=== PATIENT | male | born 1985 | race Caucasian/White ===

== ENCOUNTER 2017-04-17 22:30 | Emergency (ER) | payer OTHER ==
[2017-04-18 00:23] LABS: ADD MAN DIFF? NO
[2017-04-18 00:25] LABS: BASO % 1 % (0-3); EOS # 0.1 x10^3/uL (0.0-0.7); EOS % 1 % (0-3); HEMATOCRIT 42.1 % (39.0-53.0); HEMOGLOBIN 14.6 g/dL (13.0-17.5); LYMPH # 2.2 x10^3/uL (1.0-4.8); LYMPH % 40 % (24-48); MEAN CORPUSCULAR HEMOGLOBIN 30 pg (25-35); MEAN CORPUSCULAR HGB CONC 35 g/dL (31-37); MEAN CORPUSCULAR VOLUME 86 fL (79-100); MONO # 0.5 x10^3/uL (0.0-1.1); MONO % 10 % (0-9); NEUT # 2.8 x10^3uL (1.8-7.7); NEUT % 49 % (31-73); PLATELET COUNT 136 x10^3/uL (140-400); RED BLOOD COUNT 4.92 x10^6/uL (4.30-5.70); RED CELL DISTRIBUTION WIDTH 13.8 % (11.5-14.5); WHITE BLOOD COUNT 5.7 x10^3/uL (4.0-11.0)
[2017-04-18 00:33] LABS: ANION GAP 7 (6-14); BLOOD UREA NITROGEN 16 mg/dL (8-26); BUN/CREATININE RATIO 18 (6-20); CARBON DIOXIDE 29 mmol/L (21-32); CHLORIDE 101 mmol/L (98-107); CREATININE 0.9 mg/dL (0.7-1.3); GFR 96.6; GLUCOSE 96 mg/dL (70-99); POTASSIUM 4.1 mmol/L (3.5-5.1); SODIUM 137 mmol/L (136-145)
[2017-04-18 00:38] LABS: BILIRUBIN,URINE NEGATIVE (NEG); CLARITY,URINE CLEAR; COLOR,URINE YELLOW; GLUCOSE,URINE NEGATIVE (NEG); NITRITE,URINE NEGATIVE (NEG); PROTEIN,URINE NEGATIVE (NEG-TRACE); UROBILINOGEN,URINE 0.2 mg/dL (0.2 mg/dL)
[2017-04-18 00:39] LABS: BACTERIA,URINE 0 /HPF (0-FEW); RBC,URINE 0 /HPF (0-2); SQUAMOUS EPITHELIAL CELL,UR OCC /LPF; WBC,URINE OCC /HPF (0-4)
[2017-04-18 00:40] LABS: ALBUMIN 3.9 g/dL (3.4-5.0); ALK PHOS 79 U/L (46-116); ALT (SGPT) 39 U/L (16-63); AST (SGOT) 24 U/L (15-37); LIPASE 134 U/L (73-393); TOTAL PROTEIN 7.7 g/dL (6.4-8.2)
[2017-04-18] MEDS ORDERED: CONTRAST GIVEN MC (01:00)
[2017-04-18] MEDS: IOHEXOL 300 MG/ML 100ML VIAL. IV (01:12)
[2017-04-18] MEDS: FAMOTIDINE 20 MG/2 ML VIAL IVP (02:02)
[2017-04-18] MEDS: IV NORMAL SALINE 1000ML BAG 1,000 ML IV (02:02)
[2017-04-18] MEDS: ONDANSETRON PF 4 MG/2 ML VIAL. IV (02:03)
[2017-04-18] MEDS: fentaNYL PF VIAL 100 MCG/2 ML VIAL IV (02:07)
== END 2017-04-18 02:48 | disposition home or self-care (01) ==
LOC: ER 04-18 02:48
DX: R10.12 Left upper quadrant pain (principal); F12.10 Cannabis abuse, uncomplicated; F15.10 Other stimulant abuse, uncomplicated; Z88.8 Allergy status to other drugs, medicaments and biological substances
CPT/HCPCS: 36415; 74177; 80053; 81001; 83690; 85025; 96361; 96374; 96375; 99285-25; J2405; J3010; J7030; Q9967; S0028